=== PATIENT | female | born 1965 | race Caucasian/White ===

== ENCOUNTER 2017-08-03 11:26 | Day surgery (SDC) | payer BC ==
[2017-08-03] MEDS ORDERED: BUPIVACAINE HCL 0.25% MPF 10 ML SOL INFIL ONE (12:25)
[2017-08-03] MEDS: DEXAMETHASONE SOD PHOS PF 10 MG/ML SOL IJ ONE ×2 (12:38→12:43)
[2017-08-03 13:03] VITALS: BP 145/88; PULSE 77; RESP 20; TEMP 97.8; O2SAT 96
== END 2017-08-03 13:15 | disposition home or self-care (01) ==
LOC: SURG 11:26
PROVIDERS: ATTEND Nurse Anesthetist, Certified Registered
DX: M54.5 Low back pain (principal); M54.16 Radiculopathy, lumbar region
CPT/HCPCS: J1100

== ENCOUNTER 2017-10-27 08:38 | Day surgery (SDC) | payer OTHER ==
[2017-10-27] MEDS ORDERED: BUPIVACAINE HCL 0.25% MPF 10 ML SOL INFIL ONE (10:06)
[2017-10-27] MEDS: TRIAMCINOLONE ACETONIDE 40 MG/ML SUS ONE ×2 (10:23→10:27)
[2017-10-27 10:38] VITALS: BP 136/88; PULSE 84; RESP 14; TEMP 97.4; O2SAT 97
== END 2017-10-27 10:55 | disposition home or self-care (01) | DRG 554 ==
LOC: SURG 08:38
PROVIDERS: ATTEND Nurse Anesthetist, Certified Registered
DX: M12.9 Arthropathy, unspecified (principal); M53.3 Sacrococcygeal disorders, not elsewhere classified
CPT/HCPCS: J3300

== ENCOUNTER 2017-12-08 13:31 | Day surgery (SDC) | payer OTHER ==
[2017-12-08] MEDS ORDERED: TRIAMCINOLONE ACETONIDE 40 MG/ML SUS ONE (13:57)
[2017-12-08] MEDS ORDERED: BUPIVACAINE HCL 0.25% MPF 10 ML SOL INFIL ONE (13:57)
[2017-12-08 14:24] VITALS: BP 135/112; PULSE 108; RESP 18; TEMP 98; O2SAT 94
== END 2017-12-08 16:07 | disposition home or self-care (01) | DRG 554 ==
LOC: SURG 13:31
PROVIDERS: ATTEND Nurse Anesthetist, Certified Registered
DX: M16.12 Unilateral primary osteoarthritis, left hip (principal)
CPT/HCPCS: J3300

== ENCOUNTER 2017-12-18 20:41 | Emergency (ER) | payer OTHER ==
[2017-12-18 20:48] VITALS: RESP 18
[2017-12-18] MEDS ORDERED: TRAMADOL HYDROCHLORIDE 50 MG TAB PO ONE (21:12)
[2017-12-18] MEDS ORDERED: TRAMADOL HYDROCHLORIDE 50 MG TAB ONE (21:13)
[2017-12-18 21:37] VITALS: TEMP 97
[2017-12-18 23:00] VITALS: BP 139/95; PULSE 84; O2SAT 96
== END 2017-12-18 22:42 | disposition home or self-care (01) | DRG 605 ==
LOC: ED 20:41
DX: S00.83XA Contusion of other part of head, initial encounter (principal); T14.8XXA Other injury of unspecified body region, initial encounter; W19.XXXA Unspecified fall, initial encounter
CPT/HCPCS: 70450; 99283; 99284; A9270-GY

== ENCOUNTER 2018-01-12 12:44 | Day surgery (SDC) | payer OTHER ==
[2018-01-12] MEDS ORDERED: DIAZEPAM 5 MG TAB ONE (13:20)
[2018-01-12] MEDS ORDERED: BUPIVACAINE HCL 0.25% MPF 30 ML SOL INFIL ONE (13:20)
[2018-01-12] MEDS ORDERED: LIDOCAINE HCL 1% MPF 30 SOL ONE (13:21)
[2018-01-12 13:43] VITALS: TEMP 99.8
[2018-01-12 14:09] VITALS: BP 149/91; PULSE 97; RESP 20; O2SAT 95
== END 2018-01-12 14:14 | disposition home or self-care (01) | DRG 554 ==
LOC: SURG 12:44
PROVIDERS: ATTEND Nurse Anesthetist, Certified Registered
DX: M12.88 Other specific arthropathies, not elsewhere classified, other specified site (principal)
CPT/HCPCS: A9270-GY; J2001

== ENCOUNTER 2018-02-22 14:19 | Day surgery (SDC) | payer OTHER ==
[2018-02-22] MEDS ORDERED: DIAZEPAM 5 MG TAB ONE (14:25)
[2018-02-22] MEDS ORDERED: BUPIVACAINE HCL 0.25% MPF 30 ML SOL INFIL ONE (14:40)
[2018-02-22] MEDS: DEXAMETHASONE SOD PHOS PF 10 MG/ML SOL IJ ONE ×3 (14:51→15:02)
[2018-02-22 15:28] VITALS: BP 130/81; PULSE 88; RESP 20; TEMP 98.1; O2SAT 97
== END 2018-02-22 15:50 | disposition home or self-care (01) | DRG 552 ==
LOC: SURG 14:19
PROVIDERS: ATTEND Nurse Anesthetist, Certified Registered
DX: M54.5 Low back pain (principal); M48.062 Spinal stenosis, lumbar region with neurogenic claudication
CPT/HCPCS: A9270-GY; J1100

== ENCOUNTER 2018-03-29 12:02 | Day surgery (SDC) | payer OTHER ==
[2018-03-29] MEDS ORDERED: BUPIVACAINE HCL 0.5% MPF 10 ML SOL ONE (12:49)
[2018-03-29] MEDS: TRIAMCINOLONE ACETONIDE 40 MG/ML SUS ONE ×2 (12:57→13:01)
[2018-03-29 13:14] VITALS: BP 113/87; PULSE 88; RESP 20; TEMP 97.9; O2SAT 95
== END 2018-03-29 13:20 | disposition home or self-care (01) | DRG 103 ==
LOC: SURG 12:02
PROVIDERS: ATTEND Nurse Anesthetist, Certified Registered
DX: R51 Headache (principal)
CPT/HCPCS: J3300

== ENCOUNTER 2018-05-04 14:47 | Inpatient (IN) | payer OTHER ==
[2018-05-04] MEDS ORDERED: ALBUTEROL NEB SOL 2.5MG/3ML 1 VIAL SOL NEB PRN (14:59)
[2018-05-04] MEDS ORDERED: ACETAMINOPHEN 325 MG PO PRN (15:00)
[2018-05-04] MEDS ORDERED: NICOTINE 7 MG PATCH TD SCH (15:15)
[2018-05-04] MEDS: ALBUTEROL/IPRATROPIUM 1 VIAL SOL INH SCH ×2 (16:52→21:55)
[2018-05-04] MEDS: SODIUM CHLORIDE 0.9% FLUSH 10 ML SOL IV SCH ×2 (16:52→23:03)
[2018-05-04] MEDS: SOLUMEDROL 125 MG/2 ML 125 MG/2 ML PDS IV SCH ×2 (16:53→21:51)
[2018-05-04] MEDS ORDERED: TRAMADOL HYDROCHLORIDE 50 MG TAB PO PRN (17:23)
[2018-05-04] MEDS ORDERED: LORAZEPAM 0.5 MG TAB PO PRN (17:23)
[2018-05-04] MEDS ORDERED: PSEUDOEPHEDRINE HCL 30 MG PO PRN (17:23)
[2018-05-04] MEDS ORDERED: ACETAMINOPHEN 500 MG 500 MG TAB PO PRN (18:24)
[2018-05-04] MEDS: GABAPENTIN 300 MG CAP PO SCH ×2 (19:18→23:01)
[2018-05-04] MEDS ORDERED: ACETAMINOPHEN 325 MG PO SCH (21:00)
[2018-05-04] MEDS ORDERED: TRAZODONE HYDROCHLORIDE 50 MG TAB PO SCH (21:00)
[2018-05-04] MEDS: OLANZAPINE 2.5 MG TAB PO SCH (21:49)
[2018-05-04] MEDS: METAXALONE 800 MG TABLET PO SCH (21:50)
[2018-05-04] MEDS: ACETAMINOPHEN 500 MG 500 MG TAB PO SCH (23:01)
[2018-05-05] MEDS: SOLUMEDROL 125 MG/2 ML 125 MG/2 ML PDS IV SCH ×2 (03:22→09:21)
[2018-05-05] MEDS: ALBUTEROL/IPRATROPIUM 1 VIAL SOL INH SCH ×2 (03:26→09:22)
[2018-05-05] MEDS: SODIUM CHLORIDE 0.9% FLUSH 10 ML SOL IV SCH (07:38)
[2018-05-05] MEDS: ACETAMINOPHEN 500 MG 500 MG TAB PO SCH (07:46)
[2018-05-05] MEDS ORDERED: FLUOXETINE HYDROCHLORIDE 10 MG CAP PO SCH (09:00)
[2018-05-05] MEDS ORDERED: POTASSIUM CHLORIDE 10 MEQ TER PO SCH (09:00)
[2018-05-05] MEDS ORDERED: ENOXAPARIN 30 MG SOL SC SCH (09:00)
[2018-05-05] MEDS ORDERED: BUPROPION XL 300 MG T24 PO SCH (09:00)
[2018-05-05] MEDS: METAXALONE 800 MG TABLET PO SCH (09:04)
[2018-05-05] MEDS: GABAPENTIN 300 MG CAP PO SCH (09:20)
[2018-05-05] MEDS: OLANZAPINE 2.5 MG TAB PO SCH (09:21)
[2018-05-05 09:27] VITALS: PULSE 100; RESP 20
[2018-05-05 11:44] VITALS: BP 147/92; TEMP 97.6
[2018-05-05 11:49] VITALS: O2SAT 96
[2018-05-05] MEDS ORDERED: ACETAMINOPHEN 500 MG 500 MG TAB PO SCH (12:00)
== END 2018-05-05 12:20 | disposition home or self-care (01) | DRG 191 ==
LOC: ACUTE CARE 14:50
PROVIDERS: ADMIT Family Medicine; ATTEND Family Medicine
DX: J44.1 Chronic obstructive pulmonary disease with (acute) exacerbation (principal); F33.0 Major depressive disorder, recurrent, mild; M54.5 Low back pain; G89.29 Other chronic pain; Z72.0 Tobacco use; M81.0 Age-related osteoporosis without current pathological fracture; R06.02 Shortness of breath; R05 Cough
CPT/HCPCS: 94150; 94640; 94664; 94762; J2930; A9270-GY; J1650

== ENCOUNTER 2019-03-20 20:55 | Emergency (ER) | payer MEDICAID, OTHER ==
[2019-03-20 21:14] VITALS: RESP 16; TEMP 97.6
[2019-03-20] MEDS ORDERED: APAP/HYDROCODONE 325/7.5 TAB PO ONE (21:18)
[2019-03-20] MEDS ORDERED: APAP/HYDROCODONE 1 EACH TABLET ONE (21:36)
[2019-03-20] MEDS ORDERED: APAP/HYDROCODONE 1 EACH TABLET PO ONE (21:45)
[2019-03-21 00:16] VITALS: BP 129/89; PULSE 86; O2SAT 96
== END 2019-03-20 22:57 | disposition home or self-care (01) | DRG 605 ==
LOC: ED 20:55
DX: S70.01XA Contusion of right hip, initial encounter (principal); S50.11XA Contusion of right forearm, initial encounter; W18.30XA Fall on same level, unspecified, initial encounter; S50.811A Abrasion of right forearm, initial encounter; M25.551 Pain in right hip
CPT/HCPCS: 73090; 73501; 99282; 99283; A6232; A9270-GY